=== PATIENT | male | born 2000 | race Caucasian/White ===

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

== ENCOUNTER → 2024-02-11 | Outpatient (CLI) | payer BC ==
[2024-02-11 15:36] VITALS: BP 130/81; PULSE 55; RESP 16; TEMP 98.2
--- NOTE | 2024-02-11 15:51 | P.SLEEP ---
History of Present Illness DATE: 02/11/2024 CONSULTATION/NEW PATIENT EVALUATION HISTORY OF PRESENT ILLNESS/SLEEP-WAKE EVALUATION: 23-year-old gentleman had been evaluated in the sleep center for possible obstructive sleep apnea hypopnea syndrome. SLEEP SCHEDULE: Usually sleep schedule from 9 PM to 4:50 AM on weekdays and from 10 PM to 8 AM on weekend. FALLING ASLEEP: No problems with falling asleep. DURING SLEEP: Patient usually sleeps on the side position with loud snoring, witnessed episodes of stop breathing during the sleep, multiple awakenings from sleep, tossing and turning during sleep. Positive history of dry mouth, sweating, gasping for air, dryness in the eyes. No history of hypnogogical hallucinations, sleep paralysis, or cataplexy. DURING THE DAY/WAKE STATE: Patient wake up tired, falling asleep during the day has episodes of irritability and anxiety. Perkins sleepiness scale is in extremely high range of 23. Patient may take up to 2 naps about 930 and 12. PAST MEDICAL HISTORY: Acid reflux. PAST SURGICAL HISTORY: None. MEDICATIONS: Omeprazole 5 mg once a day. SOCIAL HISTORY: Please see below. FAMILY HISTORY: Please see below. REVIEW OF SYSTEMS: Loud snoring, multiple awakenings from sleep, sleepiness during the day. No fevers. No double vision. No recent chest pain. No shortness of breath. No abdominal pain. No bleeding episodes. No blood in urine. No seizure episodes. PHYSICAL EXAMINATION: GENERAL: A pleasant patient without any distress. VITAL SIGNS: Please see below, weight 251 pounds, BMI 36. HEENT: PERRLA, EOMI. Evaluation of oropharynx showed tongue protrudes midline, low position of soft palate Mallampati 34, retrognathia, restriction of nasal breathing. NECK: Supple. No JVD. Thyroid is not palpable. 17.5 inches in circumference. LUNGS: Clear to percussion and to auscultation. Good air exchange. No wheezing or rhonchi. HEART: S1, S2 regular. No murmurs, gallops or rubs. ABDOMEN: Soft and nontender. Bowel sounds are present. No organomegaly appreciated. EXTREMITIES: No clubbing or cyanosis. CHAPERONE: Awake, alert, and oriented x3. Cranial nerves 2 to 7 intact. There is no fasciculation or atrophy noted. No focal deficits observed. ASSESSMENT: 1. Loud snoring, witnessed episodes of stop breathing during the sleep, low position of soft palate Mallampati 34, wide neck 17.5 inches in circumference sleepiness with high Perkins Sleepiness Scale. Obstructive sleep apnea hypopnea syndrome. 2. Sleepiness with extremely high Perkins Sleepiness Scale of 23 dictate necessity to include narcolepsy and idiopathic hypersomnia in differential diagnosis. 3. Obesity, BMI 36. 4. Significant restriction of nasal breathing on the left side. 5 acid reflux. PLAN: 1. Home sleep apnea test Polysomnography for evaluation of patient's breathing during sleep. 2. CPAP/BiPAP titration if sleep study confirms obstructive sleep apnea- hypopnea syndrome. 3. Preferable position during sleep on the side. 4. No driving if patient feels any sleepiness. Patient is aware of civil and criminal liability for unsafe driving. 5. Sleep hygiene with regular sleep time for at least 7.5-8 hours. 6. Watching weight. Thank you very much for referring this patient for consultation. Sincerely, Derik Campo MD, PhD, FAASM. Diplomat of [place] [employer], Sleep Medicine Board by [place] [employer] [place] [employer] Representative of [facility] [place] cc: Felipe López MD Past Medical History Past Medical History: No Reported History Additional Past Medical History / Comment(s): damage of the stomach lining History of Any Multi-Drug Resistant Organisms: None Reported Past Surgical History: No Surgical Hx Reported Past Anesthesia/Blood Transfusion Reactions: No Reported Reaction Past Psychological History: No Psychological Hx Reported Smoking Status: Never smoker Past Alcohol Use History: None Reported Past Drug Use History: None Reported Medications and Allergies Home Medications Medication Instructions Recorded Confirmed Type Omeprazole [PriLOSEC] 5 mg PO PRN 02/11/24 History Allergies Allergy/AdvReac Type Severity Reaction Status Date / Time No Known Allergies Allergy Verified 10/18/19 02:20 Physical Exam Vitals: Vital Signs Temp Pulse Resp BP Pulse Ox 02/11/24 15:35 98.2 F 55 L 16 130/81 97 Intake and Output 02/11/24 02/11/24 02/11/24 06:59 14:59 22:59 Other: Weight 113.852 kg Sleep Note - Sleep Data ESS Total: 23 - Sleep Note Sleep Note: Temperature: 98.2 F Pulse Rate: 55 Respiratory Rate: 16 Blood Pressure: 130/81 SpO2: 97 Height: 5 ft 10 in Weight: 113.852 kg BMI: Neck Circumference: 17.5
== END ==
LOC: 3 N SLEEP 14:56
PROVIDERS: ATTEND Internal Medicine
DX: G47.33 Obstructive sleep apnea (adult) (pediatric) (principal); E66.9 Obesity, unspecified; K21.9 Gastro-esophageal reflux disease without esophagitis; Z68.36 Body mass index [BMI] 36.0-36.9, adult
CPT/HCPCS: 99211

== ENCOUNTER → 2024-03-06 | Outpatient (CLI) | payer BC ==
--- NOTE | 2024-03-13 12:21 | P.PCN ---
Description of Procedure: CLINICAL: A home sleep apnea test has been done for confirmation of possible obstructive sleep apnea-hypopnea syndrome. DESCRIPTION OF PROCEDURE: RESULTS: Recording time was 8 hours 7 minutes. Evaluation time was 7 hours 55 minutes. Evaluation time is sufficient for making conclusion about results of the test. Raw data of sleep recording has been reviewed and is adequate. Respiratory channel showed 9 apneas and 77 hypopneas. Apnea-hypopnea index was 10.8 per hour. Pulse rate in the range between minimum 42, maximum 92, average 54 by computer calculation. Lowest desaturation was 86%. IMPRESSION: 1. Obstructive Sleep Apnea Hypopnea Syndrome in mild range. Patient presents with symptoms of significant excessive daytime sleepiness with [place] Sleepiness Scale and extremely high range of 21. Please see other impressions from consultation. PLAN: 1. The patient will be started on auto-PAP treatment for correction of r espiratory abnormallities during sleep. 2. I will see patient for follow up visit to discuss results of the test, evaluate clinical response on treatment with PAP therapy and make any necessary adjustments related to mask fitting, pressure, and humidification. 3. Watching weight. 4. Sleep hygiene with regular time in bed for at least 8 hours. 5. No driving if feeling any sleepiness. 6. If patient will continue symptoms of excessive daytime sleepiness while on treatment with CPAP, we will consider multiple sleep latency test for additional diagnosis of hypersomnia. Thank you very much for allowing me to participate in the management of your patient. Sincerely, Derik Campo MD, PhD, FAASM Diplomat of [place] [employer] Sleep Medicine Board of [place] [employer] [facility] [place] cc: Felipe López MD
== END ==
LOC: 3 N SLEEP 17:08
PROVIDERS: ATTEND Internal Medicine
DX: G47.33 Obstructive sleep apnea (adult) (pediatric) (principal); R40.0 Somnolence

== ENCOUNTER → 2024-07-31 | Outpatient (CLI) | payer BC ==
[2024-07-31 17:14] VITALS: BP 135/78; PULSE 63; RESP 16; TEMP 97
--- NOTE | 2024-07-31 18:15 | P.PROGSL ---
Subjective DATE: 07/31/2024 FOLLOW UP VISIT. Patient with obstructive sleep apnea hypopnea syndrome return to sleep center for follow-up visit. This is first visit after patient received CPAP therapy. I explained to the patient results of home sleep apnea testing in details. Information from previous visit have been reviewed. Patient is using PAP equipment every night for the whole night, getting PAP supplies in time. She sleeps better and feels better during the day. The patient does not have significant problems with the mask, PAP unit and humi dification. [place] sleepiness scale is 5, which is normal. [place] Sleepiness Scale was 21 during consultation before treatment. I checked information from PAP unit. PAP unit pressure 5-14, average 8.5 cm H2O. Usage is 100% and 87% for more then 4 hours, average 6.75 hours per night. Leak is very minimal 3.2 l/m. Apnea Hypopnea Index is 1.6, which is normal. MEDICATIONS have been reviewed, please see below. During physical exam: GENERAL: A pleasant patient without any distress. VITAL SIGNS: Please see below, weight is 249.4 lbs. HEENT: PERRLA, EOMI.low position of soft palate, [place] 34 with. NECK: Supple. No JVD. LUNGS: Clear to percussion and to auscultation. Good air exchange. No wheezing or rhonchi. HEART: S1, S2 regular. ABDOMEN: Soft and nontender.[] EXTREMITIES: No clubbing or cyanosis. [employer]: Awake, alert, and oriented x3. No focal deficit. Impressions: 1. Obstructive sleep apnea-hypopnea syndrome. Patient demonstrated great compliance with treatment, benefiting from treatment. 2. Obesity. 3. Acid reflux. 4. Restriction of nasal breathing. Plan: 1. Continue using PAP equipment every night for the whole night. 2. Sleep hygiene with regular time in bed for at least 7.5-8 hours 3. PAP unit should stay lower then position of the head. 4. Advised patient to remove all remaining water from humidifier canister daily and make it dry after each usage. Refill canister with fresh distilled water before each usage. 5. Watching weight. 6. Precautions related to driving. No driving if feel any sleepiness. 7. I will maintain prescription for PAP supplies including mask, tube, filters. 8. Follow up visit in 8 months or earlier if patient has any problems. Thank you very much for allowing me to participate in the management of your patient. Derik Campo MD, PhD, FAASM. Diplomat of [place] [employer], Sleep Medicine Board by [place] [employer] [facility] [place] Objective - Vital Signs Vital Signs: Vital Signs Temp 97 F L 07/31/24 17:12 Pulse 63 07/31/24 17:12 Resp 16 07/31/24 17:12 BP 135/78 07/31/24 17:12 Pulse Ox 97 07/31/24 17:12 FiO2 Intake & Output 07/30/24 07/31/24 07/31/24 18:59 06:59 18:59 Weight 113.058 kg Home Medications: Home Medications Medication Instructions Recorded Confirmed Type Omeprazole [PriLOSEC] 5 mg PO PRN 02/11/24 History
== END ==
LOC: 3 N SLEEP 16:29
PROVIDERS: ATTEND Internal Medicine
DX: G47.33 Obstructive sleep apnea (adult) (pediatric) (principal); E66.9 Obesity, unspecified; K21.9 Gastro-esophageal reflux disease without esophagitis; R09.81 Nasal congestion; Z99.89 Dependence on other enabling machines and devices
CPT/HCPCS: 99212